=== PATIENT | male | born 1985 | race African-American/Black ===

== ENCOUNTER 2022-11-19 11:51 | Emergency (ER) | payer OTHER ==
[~2022-11-19] VITALS: Ht 190.5 cm; Wt 120.2 kg
[2022-11-19 13:14] VITALS: BP 142/70; TEMP 98.4; O2SAT 98
== END 2022-11-19 13:00 ==
LOC: ER 12:57
DX: F60.0 Paranoid personality disorder (principal); Z60.2 Problems related to living alone